=== PATIENT | female | born 1990 | race Two or more races ===

== ENCOUNTER 2024-06-29 20:20 | Emergency (ER) | payer SELFPAY ==
[~2024-06-29] VITALS: Ht 154.9 cm; Wt 60.0 kg
[2024-06-29 20:37] VITALS: PULSE 86; RESP 18; TEMP 98.4; O2SAT 98
--- NOTE | 2024-06-29 20:40 | ED.PDOC ---
PROFESSOR OF SURGERY HPI Comments 33-year-old female who came to ER for vaginal bleeding. Patient is a approximately 19 weeks . States few minutes ago, she started having vaginal bleeding, she denies any abdominal cramping pain. Denies any nausea or vomiting. Chief Complaint: Vaginal Bleed Time Seen by MD: 20:40 Reviewed Notes: Nurses Notes Information Source: Patient Mode of Arrival: Ambulatory Timing: Minutes Severity: Moderate Vaginal Discharge: None Vaginal Lesions: None Bleeding Quality: Bright Red Vaginal Mass: None Onset Of Mass/Bleeding: Spontaneous Sexual Activity: Last Consensual [place]: Unknown History of: Current Associated Signs and Symptoms: Vaginal Bleeding Past Medical History PAST MEDICAL HISTORY: Denies Surgical History: Denies all surgeries TESTS SUPERINTENDENT History: Denies all TESTS SUPERINTENDENT Hx 3 Para 2 Family History Family History: Reviewed,noncontributory to illness Social History Smoker: Non-Smoker Alcohol: Denies ETOH Use Drugs: Denies Drug Use Lives In: Home Constitutional: denies: chills, diaphoresis, fatigue, fever, malaise, sweats, weakness, others EENTM: denies: blurred vision, double vision, ear bleeding, ear discharge, ear drainage, ear pain, ear ringing, eye pain, eye redness, hearing loss, mouth pain, mouth swelling, nasal discharge, nose bleeding, nose congestion, nose pain, photophobia, tearing, throat pain, throat swelling, voice changes, others Respiratory: denies: cough, hemoptysis, orthopnea, SOB at rest, shortness of breath, SOB with excertion, stridor, wheezing, others Cardiovascular: denies: chest pain, dizzy spells, diaphoresis, Dyspnea on exertion, edema, irregular heart beat, left arm pain, lightheadedness, palpitations, PND, syncope, others Gastrointestinal: denies: abdomen distended, abdominal pain, blood streaked bowels, constipated, diarrhea, dysphagia, difficulty swallowing, hematemesis, melena, nausea, poor appetite, poor fluid intake, rectal bleeding, rectal pain, vomiting, others Genitourinary: reports: abnormal vagina bleeding; denies: burning, dyspareunia, dysuria, flank pain, frequency, hematuria, incontinence, pain, , vagina discharge, urgency, others Neurological: denies: dizziness, fainting, headache, left sided numbness, left sided weakness, numbness, paresthesia, pre-existing deficit, right sided numbness, right sided weakness, seizure, speech problems, tingling, tremors, weakness, others Musculoskeletal: denies: back pain, gout, joint pain, joint swelling, muscle pain, muscle stiffness, neck pain, others Integumetry: denies: bruises, change in color, change in hair/nails, dryness, laceration, lesions, lumps, rash, wounds, others Allergic/Immunocompromised: denies: Difficulty Healing, Frequent Infections, Hives, Itching, others Hematologic/Lymphatic: denies: anemia, blood clots, easy bleeding, easy bruising, swollen glands, others Endocrine: denies: excessive hunger, excessive sweating, excessive thirst, excessive urination, flushing, intolerance to cold, intolerance to heat, unexplained weight gain, unexplained weight loss, others Psychiatric: denies: anxiety, bipolar disorder, depression, hopeless, panic disorder, schizophrenia, sleepless, suicidal, others Physical Exam General Appearance: No Apparent Distress, Normal HEENT: Normal ENT Inspection, Pharynx Normal, TMs Normal Neck: Full Range of Motion, Non-Tender, Normal, Normal Inspection Respiratory: Chest Non-Tender, Lungs Clear, No Accessory Muscle Use, No Respiratory Distress, Normal Breath Sounds Cardiovascular: No Edema, No JVD, No Murmur, No Gallop, Normal Peripheral Pulses, Regular Rate/Rhythm Breast Exam: Deferred Gastrointestinal: No Organomegaly, Non Tender, No Pulsatile Mass, Normal Bowel Sounds, Soft Genitalia: Deferred Pelvic: Deferred Rectal: Deferred Extremities: No calf tenderness, Normal capillary refill, Normal inspection, Normal range of motion, Non-tender, No pedal edema Musculoskeletal : Apperance: Normal Neurologic: Alert, lpn medical assistant II-XII nml as Tested, No Motor Deficits, Normal Affect, Normal Mood, No Sensory Deficits Cerebellar Function: Normal Reflexes: Normal Skin: Dry, Normal Color, Warm Lymphatic: No Adenopathy Was a procedure done? Was a procedure done?: No Differential Diagnosis (TESTS SUPERINTENDENT) Vaginal Bleeding: - Missed, - Threatened, Blood Loss Anemia, Ectopic , Menorrhagia, Menometrorrhagia, Placenta Previa, UTI X-Ray, Labs, Meds, VS Vital Signs Date Time Temp Pulse Resp B/P (MAP) Pulse Ox O2 Delivery O2 Flow Rate FiO2 06/29/24 20:35 98.0 75 18 115/72 (86) 97 Lab Test 06/29/24 23:04 06/29/24 21:12 Range/Units Urine Color Straw Yellow Urine Clarity Clear Clear Urine pH 6.5 5.0-9.0 Urine Specific [place] 1.004 1.001-1.035 Urine Protein Negative Negative Urine Ketones Negative Negative Urine Blood Trace H Negative /uL Urine Nitrite Negative Negative Urine Bilirubin Negative Negative Urine Urobilinogen Normal Negative mg/dL Urine Leukocyte Esterase Negative Negative /uL Urine RBC None seen 0 - 4 /hpf Urine WBC None seen 0 - 5 /hpf Urine Squamous Epithelial Cells None seen <5 /hpf Urine Bacteria None seen None Seen /hpf Urine Glucose Normal Normal mg/dL White Blood Count 6.7 4.4-10.8 10^3/uL Red Blood Count 3.56 L 4.0-5.20 10^6/uL Hemoglobin 10.8 L 12.2-16.2 g/dL Hematocrit 31.3 L 36.0-46.0 % Mean Corpuscular Volume 88.1 80.0-100.0 fL Mean Corpuscular Hemoglobin 30.4 28.0-32.0 pg Mean Corpuscular Hemoglobin Concent 34.5 32.0-36.0 g/dL Red Cell Distribution Width 14.8 H 11.8-14.3 % Platelet Count 246 140-450 10^3/uL Mean Platelet Volume 8.3 6.9-10.8 fL Neutrophils (%) (Auto) 64.6 37.0-80.0 % Lymphocytes (%) (Auto) 26.5 10.0-50.0 % Monocytes (%) (Auto) 7.4 0.0-12.0 % Eosinophils (%) (Auto) 1.0 0.0-7.0 % Basophils (%) (Auto) 0.5 0.0-2.0 % Neutrophils # (Auto) 4.4 1.6-8.6 10 ^3/uL Lymphocytes # (Auto) 1.8 0.4-5.4 10 ^3/uL Monocytes # (Auto) 0.5 0-1.3 10 ^3/uL Eosinophils # (Auto) 0.1 0-0.8 10 ^3/uL Basophils # (Auto) 0 0-0.2 10 ^3/uL Nucleated Red Blood Cells 0.0 % Sodium Level 137 136-145 mmol/L Potassium Level 3.3 L 3.5-5.1 mmol/L Chloride Level 108 H 98-107 mmol/L Carbon Dioxide Level 23 20-31 mmol/L Anion Gap 6 5-15 Blood Urea Nitrogen 8 L 9-23 mg/dL Creatinine 0.64 0.550-1.02 mg/dL Glomerular Filtration Rate Calc 120 >90 mL/min BUN/Creatinine Ratio 12.5 10.0-20.0 Serum Glucose 112 H 74-106 mg/dL Calcium Level 9.1 8.7-10.4 mg/dL Beta HCG, Quantitative 31913.2 H 1.5-4.2 mIU/mL Time of 1ST Reevaluation: 20:36 Reevaluation 1ST: Unchanged Patient Education/Counseling: Diagnosis, Treatment Family Education/Counseling: No Family Present Departure 1 Departure Time of Disposition: 23:56 (Patient has a threatened miscarriage. We will discharge patient home with outpatient OB follow up) Impression: Primary Impression: Threatened miscarriage Additional Impression: Vaginal bleeding during Disposition: 01 HOME / SELF CARE / HOMELESS Condition: Stable Additional Instructions: Your ultrasound appears normal. It is important to follow up with your OBGYN within the next 3 days. If your symptoms worsen or you have any other concerns please return [facility]. Discharged With: Self Critical Care Note Critical Care Time?: No Stability Stability form required: No Heart Score Heart Score: Heart Score Response (Comments) Value History N/A 0 EKG N/A 0 Age N/A 0 Risk Factors N/A 0 Troponin N/A 0 Total 0 I personally scribed for SLY HOBBS MD ([email or web address]) on 06/29/24 at 20:40. Electronically submitted by Jamal Weston ([email or web address]). SLY HOBBS MD Jun 29, 2024 20:40
[2024-06-29 21:36] LABS: Basophils # (auto) 0 10 ^3/uL (0-0.2); Basophils % (auto) 0.5 % (0.0-2.0); Eosinophils # (auto) 0.1 10 ^3/uL (0-0.8); Hematocrit 31.3 % (36.0-46.0); Hemoglobin 10.8 g/dL (12.2-16.2); Lymphocytes # (auto) 1.8 10 ^3/uL (0.4-5.4); Lymphocytes % (auto) 26.5 % (10.0-50.0); Mean Corpuscular Hemoglobin 30.4 pg (28.0-32.0); Mean Corpuscular Hgb Conc. 34.5 g/dL (32.0-36.0); Mean Corpuscular Volume 88.1 fL (80.0-100.0); Monocytes # (auto) 0.5 10 ^3/uL (0-1.3); Monocytes % (auto) 7.4 % (0.0-12.0); Neutrophils # (auto) 4.4 10 ^3/uL (1.6-8.6); Neutrophils % (auto) 64.6 % (37.0-80.0); Platelet Count (auto) 246 10^3/uL (140-450); Red Blood Cells 3.56 10^6/uL (4.0-5.20); Red Cell Distribution Width 14.8 % (11.8-14.3); White Blood Cell 6.7 10^3/uL (4.4-10.8)
--- NOTE | 2024-06-29 21:39 | DVH ---
OB ULTRASOUND, LIMITED CLINICAL INDICATION: abdominal pain and vaginal bleeding TECHNIQUE: Multiple grayscale ultrasound and M-mode images were obtained of the pelvis for evaluation of intrauterine . COMPARISON: None FINDINGS: A single living fetus is seen in transverse right lateral presentation. Biparietal diameter: 4.27 cm (18 weeks, 6 days) Head Circumference: 15.86 cm (18 weeks, 5 days) Abdomen Circumference: 14.04 cm (19 weeks, 3 days) Femur Length: 3.03 cm (19 weeks, 3 days) Estimated weight: 285 grams (+/- 43 grams). Placenta: Posterior placenta. Complete Placenta previa. Amniotic fluid: Visibly normal. Cervix is 4.1 cm and closed. heart rate: 141 beats/min. A complete anatomic survey was not performed on this exam. IMPRESSION: 1. Single intrauterine with an estimated gestational age of 19 weeks, 1 days, correspondi ng to an estimated date of delivery of 11/22/2024. 2. Complete placenta previa is seen at this time. Continued attention on follow-up imaging allan noonan
[2024-06-29 21:46] LABS: Sodium 137 mmol/L (136-145)
[2024-06-29 21:47] LABS: Anion Gap 6 (5-15); Carbon Dioxide 23 mmol/L (20-31)
[2024-06-29 21:48] LABS: Calcium 9.1 mg/dL (8.7-10.4)
[2024-06-29 21:52] LABS: BUN/Creatinine Ratio 12.5 (10.0-20.0)
[2024-06-29 22:00] LABS: Blood Urea Nitrogen 8 mg/dL (9-23); Chloride 108 mmol/L (98-107); Glucose 112 mg/dL (74-106); Potassium 3.3 mmol/L (3.5-5.1)
[2024-06-29 23:05] LABS: Urine Bacteria None Seen /hpf (None Seen); Urine WBC None Seen /hpf (0 - 5)
[2024-06-29 23:16] LABS: Urine Blood TRACE /uL (Negative); Urine Clarity Clear (Clear); Urine Protein, UAD Negative (Negative); Urine Specific Gravity 1.004 (1.001-1.035); Urine Squamous Epithelial Cell None Seen /hpf (<5); Urine Urobilinogen Normal (Negative); Urine pH 6.5 (5.0-9.0)
[2024-06-29 23:19] LABS: Urine Color STRAW (Yellow)
[2024-06-30 00:12] VITALS: BP 129/77; PULSE 80; RESP 17; O2SAT 98
== END 2024-06-30 00:18 | disposition home or self-care (01) ==
LOC: ER 20:20
DX: O20.0 Threatened abortion (principal); Z3A.19 19 weeks gestation of pregnancy
CPT/HCPCS: 36415; 76805; 76817; 80048; 81001; 84702; 85025; 86900; 86901

== ENCOUNTER 2024-09-14 19:32 | Observation (INO) | payer MEDICAID ==
[~2024-09-14] VITALS: Ht 154.9 cm; Wt 61.7 kg
[2024-09-14] MEDS ORDERED: NIFE10CA52 PO (20:26)
[2024-09-14] MEDS ORDERED: PROG200C21 (20:28)
[2024-09-14] MEDS: BETAMETHASONE ACET (30mg/5ml) 5ml Vial 6mg/ml IM SCH (20:45)
== END 2024-09-14 21:04 | disposition home or self-care (01) ==
LOC: LDRP 19:32
PROVIDERS: ADMIT Obstetrics & Gynecology; ATTEND Obstetrics & Gynecology
DX: O26.873 Cervical shortening, third trimester (principal); Z3A.30 30 weeks gestation of pregnancy; Z79.899 Other long term (current) drug therapy; Z98.890 Other specified postprocedural states
CPT/HCPCS: 81002; 94760; 96372; G0378; J0702

== ENCOUNTER 2024-09-15 08:33 | Observation (INO) | payer MEDICAID ==
[2024-09-15] MEDS: BETAMETHASONE ACET (30mg/5ml) 5ml Vial 6mg/ml IM ONE (09:14)
--- NOTE | 2024-09-16 06:38 | DVHDS2 ---
Physician Discharge Progress N Final Diagnosis: ptl [place] Operations or Procedures: Operations or Procedures nst,[place] Condition on Discharge: Good Disposition: Home Discharge Instructions: Diet: Regular Activity: No Restrictions, As Tolerated Medications: na Follow Up Care: Specialist: 2d Discharge Statement: "Patient was advised to return to the ER or call 911 if any headaches, dizziness, shortness of breath, chest pain, abdominal pain, bleeding, fevers, or worsening of medical condition. Patient was counseled about treatment plan, medications, possible side effects, patientverbalized understanding. All questions were answered to the best of my ability. This discharge took greater then 30 minutes in planning, reviewing documentation, counseling the patient, and discussing with other team members." Visit Coding OBGYN Date of Service: Sep 15, 2024 Billing Provider: UMBERTO KASPER DO FASHION PATTERNMAKER Common Visit Codes: 67389-ZHZASSQ INP/OBS CARE (HIGH) FASHION PATTERNMAKER Procedure Codes: 91024-12- NON-STRESS TEST UMBERTO KASPER DO Sep 16, 2024 06:38
== END 2024-09-15 09:34 | disposition home or self-care (01) ==
LOC: UNDOADMOB 08:33 → LDRP 08:33 → UNDODISOB 09:34
PROVIDERS: ADMIT Obstetrics & Gynecology; ATTEND Obstetrics & Gynecology
DX: O60.03 Preterm labor without delivery, third trimester (principal); O26.873 Cervical shortening, third trimester; Z3A.30 30 weeks gestation of pregnancy; Z79.899 Other long term (current) drug therapy; Z98.890 Other specified postprocedural states
CPT/HCPCS: 81002; 94760; 96372; G0378; J0702

== ENCOUNTER 2024-09-22 07:14 | Observation (INO) | payer MEDICAID ==
[2024-09-22] MEDS ORDERED: PREN-129 OR (09:58)
[2024-09-22] MEDS ORDERED: PROG100S VA (09:58)
--- NOTE | 2024-09-22 10:06 | DVH ---
[facility]24 AM Indication: Short cervix Comparison: None Technique: Sonogram of gravid uterus utilizing grayscale and color techniques utilizing transabdomina l and transvaginal probes. FINDINGS: Single intrauterine gestation with heart activity 135 beats per minute. Posterior placenta with no ev idence of previa. The fetus is in cephalic presentation. TONJA is 10.6 cm with DVP of 4.8 cm. Mild v-shaped cervical funneling with the length of fundal measuring 0.5 cm. The residual cervical l ength is 2.6 cm in the transvaginal scan. IMPRESSION: 1. Shortened cervix measuring 2.6 cm in length mild v-shaped funneling of the internal os. 2. Single living intrauterine .
--- NOTE | 2024-09-22 12:48 | DVHDS2 ---
Physician Discharge Progress N Final Diagnosis: ptl 31 wks Operations or Procedures: Operations or Procedures nst,sono Condition on Discharge: Good Disposition: Home Discharge Instructions: Diet: Regular Activity: Light activity Medications: na Follow Up Care: Specialist: 1w Discharge Statement: "Patient was advised to return to the ER or call 911 if any headaches, dizzines s, shortness of breath, chest pain, abdominal pain, bleeding, fevers, or worsening of medical condition. Patient was counseled about treatment plan, medications, possible side effects, patientverbalized understanding. All questions were answered to the best of my ability. This discharge took greater then 30 minutes in planning, reviewing documentation, counseling the patient, and discussing with other team members." Visit Coding OBGYN Date of Service: Sep 22, 2024 Billing Provider: UMBERTO KASPER DO EQUIPMENT OPERATOR/LABORER Common Visit Codes: 01383-[id number] OBS CARE (HIGH) EQUIPMENT OPERATOR/LABORER Procedure Codes: 81963-97- NON-STRESS TEST UMBERTO KASPER DO Sep 22, 2024 12:48
== END 2024-09-22 10:19 | disposition home or self-care (01) ==
LOC: LDRP 09:03
PROVIDERS: ADMIT Obstetrics & Gynecology; ATTEND Obstetrics & Gynecology
DX: O60.03 Preterm labor without delivery, third trimester (principal); Z3A.31 31 weeks gestation of pregnancy; Z79.899 Other long term (current) drug therapy; Z98.890 Other specified postprocedural states
CPT/HCPCS: 59025; 76815; 81002; 94760; G0378

== ENCOUNTER 2024-09-29 06:28 | Observation (INO) | payer MEDICAID ==
[~2024-09-29 06:28] MED LIST: PREN-129 OR; PROG100S VA
--- NOTE | 2024-09-29 09:11 | DVH ---
CLINICAL HISTORY: labor. Short cervix. COMPARISON: Prior ultrasound dated 09/22/2024. TECHNIQUE: biophysical profile was performed. Transabdominal sonographic images of the fetus we re obtained. FINDINGS: The fetus is in cephalic position. heart rate measures 137 BPM. Amniotic fluid index measures 10.1 cm. The placenta is posterior in position. No visualized evidence of placenta previa or abruption. The tip of the placenta is approximately 2.8 cm from the cervical os. Cervix measures 3.2 cm in length. BPP profile is an overall score of 8/8, with 2/2 points for breathing, with at least one episode of breathing over a 30 second duration during a 30 minute observation, 2/2 points for m ovements, with 3 or more discrete body or limb movements, 2/2 points for tone, with one or more episodes of extremity extension with return to flexion, or opening and closing of hand, and 2/ 2 points for amniotic fluid, with at least 1 pocket of amniotic fluid that measures 2 cm in 2 perpend icular planes. IMPRESSION: 1. BPP score of 8/8. 2. Cervix measures 3.2 cm in length.
--- NOTE | 2024-09-30 08:02 | DVHDS2 ---
Physician Discharge Progress N Final Diagnosis: ptl 32 wks Operations or Procedures: Operations or Procedures nst,sono Condition on Discharge: Good Disposition: Home Discharge Instructions: Diet: Regular Activity: Light activity Medications: na Follow Up Care: Specialist: 1w Discharge Statement: "Patient was advised to return to the ER or call 911 if any headaches, dizzines s, shortness of breath, chest pain, abdominal pain, bleeding, fevers, or worsening of medical condition. Patient was counseled about treatment plan, medications, possible side effects, patientverbalized understanding. All questions were answered to the best of my ability. This discharge took greater then 30 minutes in planning, reviewing documentation, counseling the patient, and discussing with other team members." Visit Coding OBGYN Date of Service: Sep 29, 2024 Billing Provider: UMBERTO KASPER DO BRAKE LINING MAKER Common Visit Codes: 81467-[id number] INP/OBS CARE (HIGH) BRAKE LINING MAKER Procedure Codes: 06717-23- NON-STRESS TEST UMBERTO KASPER DO Sep 30, 2024 08:02
== END 2024-09-29 09:24 | disposition home or self-care (01) ==
LOC: LDRP 08:01 → UNDOADMOB 08:01 → LDRP 08:08
PROVIDERS: ADMIT Obstetrics & Gynecology; ATTEND Obstetrics & Gynecology
DX: O60.03 Preterm labor without delivery, third trimester (principal); Z3A.32 32 weeks gestation of pregnancy; Z79.899 Other long term (current) drug therapy
CPT/HCPCS: 59025; 76819; 81002; 94760; G0378

== ENCOUNTER 2024-10-06 08:15 | Observation (INO) | payer MEDICAID ==
--- NOTE | 2024-10-06 09:21 | DVH ---
Procedure: US BIOPHYSICAL PROFILE 10/06/2024 08:50 AM Indication: PTL, Short Cervix Comparison: US BIOPHYSICAL PROFILE on DOS: 09/29/24 Technique: Sonogram of gravid uterus utilizing grayscale and color techniques. FINDINGS: Single living intrauterine gestation. Presentation: Cephalic Placenta: Posterior, low lying with its distal end 2.4 cm from the internal os heart rate: 126 bpm TONJA: 11.3 cm, DVP: 6.6 cm Maternal cervix: Closed, measuring 3.5 cm in length in the transvaginal scan Biophysical Profile: breathing score: 2 movement score: 2 tone: 2 Quantitative TONJA score: 2 Total score: 8/8 IMPRESSION: 1. Single living as above. 2. Biophysical profile score: 8/8. 3. Low-lying placenta.
--- NOTE | 2024-10-06 18:09 | DVHDS2 ---
Physician Discharge Progress N Final Diagnosis: Threatened labor Secondary Diagnosis: Encounter for surveillance Operations or Procedures: Operations or Procedures NST/BPP/TONJA Limited OB US Commentary: Commentary PATIENT: VANDANA SESAY ACCT: [id number] UNIT: [id number] : 1990 LOC: LD ROOM / BED: TRIAGE3 / A AGE / SEX: 33 / F ADM STATUS: ADM IN SERVICE 08 ORDERING PHYSICIAN: CHAYO NGO DO PROCEDURE(s): BPP - BIOPHYSICAL PROFILE REASON: PTL, Short Cervix ORDER NUMBER(s): [id number], ACCESSION NUMBER(s): [id number] Procedure: US BIOPHYSICAL PROFILE 10/06/2024 08:50 AM Indication: PTL, Short Cervix Comparison: US BIOPHYSICAL PROFILE on DOS: 09/29/24 Technique: Sonogram of gravid uterus utilizing grayscale and color techniques. FINDINGS: Single living intrauterine gestation. Presentation: Cephalic Placenta: Posterior, low lying with its distal end 2.4 cm from the internal os heart rate: 126 bpm TONJA: 11.3 cm, DVP: 6.6 cm Maternal cervix: Closed, measuring 3.5 cm in length in the transvaginal scan Biophysical Profile: breathing score: 2 movement score: 2 tone: 2 Quantitative TONJA score: 2 Total score: 8/8 IMPRESSION: 1. Single living as above. 2. Biophysical profile score: 8/8. 3. Low-lying placenta. Condition on Discharge: Stable Disposition: Home Discharge Instructions: Diet: Regular Activity: Light activity Activity comment: Pelvic rest Follow Up/Referral: As scheduled Medications: N/A Follow Up Care: Discharge Statement: "Patient was advised to return to the ER or call 911 if any headaches, dizziness, shortness of breath, chest pain, abdominal pain, bleeding, fevers, or worsening of medical condition. Patient was counseled about treatment plan, medications, possible side effects, patientverbalized understanding. All questions were answered to the best of my ability. This discharge took greater then 30 minutes in planning, reviewing documentation, counseling the patient, and discussing with other team members." Visit Coding OBGYN Date of Service: Oct 06, 2024 Billing Provider: CHAYO NGO DO PICK REMOVER Common Visit Codes: 86419-QVA/OBS SAME DATE (HIGH) CHAYO NGO DO Oct 06, 2024 18:09
== END 2024-10-06 09:42 | disposition home or self-care (01) ==
LOC: LDRP 08:15 → UNDOADMOB 08:15 → LDRP 08:27 → UNDODISOB 09:42
PROVIDERS: ADMIT Obstetrics & Gynecology; ATTEND Obstetrics & Gynecology
DX: O47.03 False labor before 37 completed weeks of gestation, third trimester (principal); O26.873 Cervical shortening, third trimester; Z98.890 Other specified postprocedural states; Z79.899 Other long term (current) drug therapy; Z3A.33 33 weeks gestation of pregnancy
CPT/HCPCS: 59025; 76819; 81002; 94760; G0378

== ENCOUNTER 2024-10-13 06:02 | Observation (INO) | payer MEDICAID ==
--- NOTE | 2024-10-16 17:04 | DVH ---
BIOPHYSICAL PROFILE HISTORY: ptl/ short cx Comparison: 10/06/2024 TECHNIQUE: Multiple transabdominal real-time grayscale sonographic images through the gravid uterus of the fetus with duplex Doppler color flow and M-mode spectral analysis FINDINGS: BIOPHYSICAL PROFILE: breathing score: 2/2 movement score: 2/2 tone score: 2/2 Quantitative TONJA score: 2/2 (TONJA: 11.7 cm Cm.) Total score: 8/8 The cervix 3.1 cm Single live fetus in cephalic presentation. heart rate 145 beats per minute. Low-lying posterior placenta 2.9 cm from the internal cervical os IMPRESSION: 1. Biophysical profile score: 8/8 2. Low-lying posterior wall placenta. Normal cervical length 3. No significant change from previous exam
--- NOTE | 2024-10-18 14:48 | DVHDS2 ---
Physician Discharge Progress N Final Diagnosis: ptl Operations or Procedures: Operations or Procedures nst reactive reviwed Condition on Discharge: Good Disposition: Home Discharge Instructions: Diet: Regular Activity: Light activity Medications: na Follow Up Care: Specialist: sindik Discharge Statement: "Patient was advised to return to the ER or call 911 if any headaches, di zziness, shortness of breath, chest pain, abdominal pain, bleeding, fevers, or worsening of medical condition. Patient was counseled about treatment plan, medications, possible side effects, patient�verbalized understanding. All questions were answered to the best of my ability. This discharge took greater then 30 minutes in planning, reviewing documentation, counseling the patient, and discussing with other team members." Visit Coding OBGYN Date of Service: October 16, 2024 Billing Provider: UMBERTO KASPER DO INSTRUCTOR BRIDGE Common Visit Codes: 33159-SUPMOMG OBS CARE (HIGH) INSTRUCTOR BRIDGE Procedure Codes: 54315-61- NON-STRESS TEST UMBERTO KASPER DO October 18, 2024 14:48
== END 2024-10-16 17:10 | disposition home or self-care (01) ==
LOC: LDRP 10-16 03:35 → UNDOADMOB 10-16 03:35 → LDRP 10-16 15:51
PROVIDERS: ADMIT Obstetrics & Gynecology; ATTEND Obstetrics & Gynecology
DX: O60.03 Preterm labor without delivery, third trimester (principal); Z3A.35 35 weeks gestation of pregnancy; Z79.899 Other long term (current) drug therapy; Z98.890 Other specified postprocedural states
CPT/HCPCS: 59025; 76819; 81002; 82948; G0378

== ENCOUNTER 2024-10-23 10:32 | Observation (INO) | payer MEDICAID ==
--- NOTE | 2024-10-24 06:08 | DVHDS2 ---
Discharge Summary Date of Admission October 23, 2024 at 15:15 Date of Discharge: October 23, 2024 Admitting Diagnosis Patient here for monitoring with history of labor and short cervix previous sections Brief Hx & Hospital Course: Patient here for monitoring with history of labor and short cervix previous sections Condition at Discharge: Good Final Diagnosis/Problems List Patient here for monitoring with history of labor and short cervix previous sections Discharge Disposition: Home SNF Discharge Reason For Transfer: Kick counts labor precautions Discharge Instruct/Medications Diet: Regular Activity: No Restrictions, As Tolerated Discharge Statement: "Patient was advised to return to the ER or call 911 if any headaches, dizziness, shortness of breath, chest pain, abdominal pain, bleeding, fevers, or worsening of medical condition. Patient was counseled about treatment plan, medications, possible side effects, patient�verbalized understanding. All questions were answered to the best of my ability. This discharge took greater then 30 minutes in planning, reviewing documentation, counseling the patient, and discussing with other team members." ASSESSMENT ASSESSMENT Assessment Visit Coding OBGYN Date of Service: October 24, 2024 Billing Provider: DANIELLE CODY DO PBX TECHNICIAN Common Visit Codes: 81043-KZR/OBS SAME DATE (LOW), 59613-DRQ/OBS SAME DATE (MOD), 27198-ESA/OBS SAME DATE (HIGH) PBX TECHNICIAN Procedure Codes: 89875-24- NON-STRESS TEST DANIELLE CODY DO October 24, 2024 06:08
== END 2024-10-23 16:37 | disposition home or self-care (01) ==
LOC: LDRP 15:15 → UNDOADMOB 15:15 → LDRP 15:29 → UNDODISOB 16:37
PROVIDERS: ADMIT Obstetrics & Gynecology; ATTEND Obstetrics & Gynecology
DX: O60.03 Preterm labor without delivery, third trimester (principal); O26.873 Cervical shortening, third trimester; Z3A.36 36 weeks gestation of pregnancy; Z98.891 History of uterine scar from previous surgery; Z79.899 Other long term (current) drug therapy
CPT/HCPCS: 59025; 81002; 94760; G0378

== ENCOUNTER 2024-10-30 15:00 | Observation (INO) | payer MEDICAID ==
[2024-10-30] MEDS ORDERED: NIFE10CA52 PO (15:41)
--- NOTE | 2024-10-30 17:10 | DVHDS2 ---
Physician Discharge Progress N Final Diagnosis: Encounter for antepartum surveillance Secondary Diagnosis: History of labor Operations or Procedures: Operations or Procedures NST- Reactive (reviewed) Condition on Discharge: Stable Disposition: Home Discharge Instructions: Diet: Regular Activity: No Restrictions, As Tolerated Follow Up/Referral: PRN Medications: N/A Follow Up Care: Discharge Statement: "Patient was advised to return to the ER or call 911 if any headaches, dizziness, shortness of breath, chest pain, abdominal pain, bleeding, fevers, or worsening of medical condition. Patient was counseled about treatment plan, medications, possible side effects, patientverbalized understanding. All questions were answered to the best of my ability. This discharge took greater then 30 minutes in planning, reviewing documentation, counseling the patient, and discussing with other team members." Visit Coding OBGYN Date of Service: October 30, 2024 Billing Provider: CHAYO NGO DO HISTOLOGY ASSISTANT Common Visit Codes: 53385-CFG/OBS SAME DATE (HIGH) HISTOLOGY ASSISTANT Procedure Codes: 67309-14- NON-STRESS TEST CHAYO NGO DO October 30, 2024 17:10
== END 2024-10-30 16:04 | disposition home or self-care (01) ==
LOC: LDRP 15:00
PROVIDERS: ADMIT Obstetrics & Gynecology; ATTEND Obstetrics & Gynecology
DX: O09.213 Supervision of pregnancy with history of pre-term labor, third trimester (principal); Z98.890 Other specified postprocedural states; Z79.899 Other long term (current) drug therapy; Z3A.37 37 weeks gestation of pregnancy
CPT/HCPCS: 59025; 81002; 94760; G0378

== ENCOUNTER 2024-11-10 06:38 | Inpatient (IN) | payer MEDICAID ==
[~2024-11-10] VITALS: Ht 154.9 cm; Wt 63.5 kg
[~2024-11-10 06:38] MED LIST changes: +NIFE10CA52 PO
--- NOTE | 2024-11-10 08:54 | DVHHP ---
ADMIT DATE: 11/10/2024 CHIEF COMPLAINT: Desires repeat section with bilateral tubal ligation. HISTORY OF PRESENT ILLNESS: The patient is a 34-year-old 3, para 2 with EDC 11/20, estimated gestational age of 39 weeks, admitted for repeat section with bilateral tubal ligation. The patient has had history of labor, being on Procardia. Risks, complications, and failure rate with section and tubal ligation were discussed with the patient. The patient fully understands and wishes to proceed with planned procedure. PAST MEDICAL HISTORY: None. PAST SURGICAL HISTORY: x 1. SOCIAL HISTORY: None. FAMILY HISTORY: None. WOOL FLEECE GRADER HISTORY: One section, one vaginal delivery. ALLERGIES: No known drug allergies. REVIEW OF SYSTEMS: Consistent with HPI. PHYSICAL EXAMINATION: VITAL SIGNS: Stable, afebrile. HEENT: Within normal limits. CARDIOVASCULAR: Regular rate and rhythm. LUNGS: Clear to auscultation. BREASTS: Symmetrical. No masses. ABDOMEN: Gravid. Positive heart. PELVIC: 1 cm, 60%, -2. EXTREMITIES: No clubbing, cyanosis, or edema. IMPRESSION: * Term . Desires repeat section. * Desires bilateral tubal ligation. * Previous section x 1. * History of labor. PLAN: Repeat section with bilateral tubal ligation. Informed consent obtained. Risks and complications of surgery include infection, bleeding, hematoma formation, injury to bowel, bladder, surrounding organs, possibility of DVT, pulmonary embolism, and risks of anesthesia discussed with the patient. Failure rate with tubal sterilization discussed with the patient. Use of Filshie clip discussed with the patient. The patient fully understands. She wishes to proceed with planned procedure. DO JONY Carr/KAROL TID: [id number] RECEIPT: [id number]
[2024-11-10 11:27] LABS: Basophils # (auto) 0 10 ^3/uL (0-0.2); Basophils % (auto) 0.3 % (0.0-2.0); Eosinophils # (auto) 0 10 ^3/uL (0-0.8); Eosinophils % (auto) 0.4 % (0.0-7.0); Hematocrit 34.6 % (36.0-46.0); Hemoglobin 11.6 g/dL (12.2-16.2); Lymphocytes # (auto) 1.5 10 ^3/uL (0.4-5.4); Lymphocytes % (auto) 22.2 % (10.0-50.0); Mean Corpuscular Hemoglobin 27.2 pg (28.0-32.0); Mean Corpuscular Hgb Conc. 33.6 g/dL (32.0-36.0); Mean Corpuscular Volume 80.8 fL (80.0-100.0); Monocytes # (auto) 0.3 10 ^3/uL (0-1.3); Monocytes % (auto) 4.1 % (0.0-12.0); Neutrophils # (auto) 4.9 10 ^3/uL (1.6-8.6); Nucleated Red Blood Cells % 0.1 %; Platelet Count (auto) 220 10^3/uL (140-450); Red Blood Cells 4.27 10^6/uL (4.0-5.20); White Blood Cell 6.7 10^3/uL (4.4-10.8)
[2024-11-10 11:41] LABS: Albumin 4.1 g/dL (3.2-4.8); Anion Gap 11 (5-15); Aspartate Aminotransferase 14 U/L (13-40); BUN/Creatinine Ratio 13.1 (10.0-20.0); Calcium 8.8 mg/dL (8.7-10.4); Carbon Dioxide 21 mmol/L (20-31); Chloride 103 mmol/L (98-107); Potassium 3.6 mmol/L (3.5-5.1)
[2024-11-10 11:42] LABS: Bilirubin, Total 0.5 mg/dL (0.2-1.0)
[2024-11-10 11:43] LABS: INR 0.92 (0.9-1.15); Partial Thromboplastin Time 26.5 SEC (24.5-34.5); Prothrombin Time 9.8 sec (9.3-11.8)
[2024-11-10 11:51] LABS: Alanine Aminotransferase 9 U/L (7-40); Alkaline Phosphatase 179 U/L (46-116); Blood Urea Nitrogen 8 mg/dL (9-23); Glucose 111 mg/dL (74-106); Sodium 135 mmol/L (136-145)
[2024-11-10 11:59] LABS: Urine Bacteria FEW /hpf (None Seen); Urine Blood Negative /uL (Negative); Urine Clarity Turbid (Clear); Urine Color Yellow (Yellow); Urine Mucus FEW (None Seen); Urine Protein, UAD TRACE (Negative); Urine Specific Gravity 1.018 (1.001-1.035); Urine Squamous Epithelial Cell MOD /hpf (<5); Urine Urobilinogen Normal (Negative); Urine WBC 13 /HPF (0-5); Urine pH 6.5 (5.0-9.0)
[2024-11-10 12:15] LABS: Amphetamine Screen, Urine Neg (NEGATIVE); Barbiturate Scree,Urine Neg (NEGATIVE); Benzodiazephine Screen, Urine Neg (NEGATIVE); Cannabinoid Screen, Urine Neg (NEGATIVE); Cocaine Screen, Urine Neg (NEGATIVE); Opiate Scree,Urine Neg (NEGATIVE); Phencyclidine Screen, Urine Neg (NEGATIVE)
[2024-11-11] VITALS (13 sets, daily range): BP systolic 102–127; BP diastolic 61–87; PULSE 61–78; RESP 16–18; TEMP 97.3–98.4; O2SAT 96–100
[2024-11-11] MEDS: ceFAZolin 2 GM/D5W50ml 50 ML IV ONE (06:31)
[2024-11-11] MEDS: LACTATED RINGER'S 1,000 ML IV ONE (06:34)
[2024-11-11] MEDS: LACTATED RINGER'S 1,000 ML IV SCH (06:34)
[2024-11-11] MEDS ORDERED: ceFAZolin 1GM/50ML 50 ML IV SCH (07:15)
[2024-11-11] MEDS: LACT. RINGERS/OXYTOCIN 20UNITS 1,000 ML IV ONE (07:15)
[2024-11-11] MEDS: GUM (CHEWING) 1 GUM CHEW CHEW ONE (07:15)
[2024-11-11] MEDS ORDERED: ONDANSETRON HCL 4 MG/2 ML VIAL IV PRN ×2 (07:15→09:45)
[2024-11-11] MEDS ORDERED: HYDR-4072 PO (07:18)
[2024-11-11] MEDS ORDERED: DOCU-94 PO (07:18)
[2024-11-11] MEDS ORDERED: IBUP-1456 PO (07:18)
[2024-11-11] MEDS: SODIUM CITR/CITRIC ACID ORAL SOLN 30 ML PO ONE (07:19)
[2024-11-11] MEDS: SUCCINYLCHOLINE CHLORIDE 20 MG/ML 10ML VIAL IV ONE (07:32)
[2024-11-11] MEDS: TETRACAINE 1% INJ 2 ML VIAL IJ ONE (07:32)
[2024-11-11] MEDS ORDERED: MORPHINE SULF PF 5 MG/10 ML VIAL ONE (07:34)
[2024-11-11] MEDS ORDERED: fentaNYL CITRATE 100 MCG/2 ML VL ONE (08:13)
[2024-11-11] MEDS ORDERED: MIDAZOLAM HCL 2MG/2ML 2ml VIAL (1mg/ml) ONE (08:13)
[2024-11-11] MEDS: CARBOPROST TROMETHAMINE 250 MCG/1ML VIAL IM ONE (08:23)
--- NOTE | 2024-11-11 08:32 | DVHOP2 ---
Operative Report DATE OF OPERATION: 11/11/24 PREOPERATIVE DIAGNOSES: 1. Term , desires repeat section. 2. Desires bilateral tubal ligation POSTOPERATIVE DIAGNOSES: 1. Term , desires repeat section. 2. Desires bilateral tubal ligation PROCEDURES: Repeat section with bilateral tubal ligation via Filschie Clips SURGEON: Temitope Laughlin D.O./ADAL ANESTHESIOLOGIST: Dr. VAZ TYPE OF ANESTHESIA : SPINAL ESTIMATED BLOOD LOSS: 1000 mL CONSENT: The patient was informed of the risks and benefits of the procedure. These include but are not limited to , complications of anesthesia, postoperative infection, incomplete relief of symptoms, recurrence of symptoms, damage to blood vessels, nerves and tendons, deep venous thrombosis, pulmonary embolism and possible need for repeat surgery in the future. Surgery was opted. FINDINGS: Baby [F] with apgars [9] and [9]. Grossly normal appearing tubes and ovaries. TISSUE TO PATHOLOGY: Placenta. PROCEDURE IN DETAIL: The patient was taken to the operating room where she was placed under spinal anesthesia. She was then prepped and draped in the usual sterile manner in supine position with a leftward tilt. A Pfannenstiel skin incision was then made 2 cm above the symphysis pubis. This incision was enzo d to the underlying layer of fascia. The fascia was nicked in the midline and the incision was extended laterally. The superior aspect of the fascial incision was grasped and elevated. Underlying rectus muscle was dissected off bluntly. The same procedure was done to the inferior aspect of the fascial incision. The rectus muscles were then in the midline. Peritoneum was identified and entered. Peritoneal incision was extended superiorly and inferiorly with good visualization of the bladder. Bladder blade was inserted. Vesicouterine peritoneum was identified and entered. Lower uterine segment was incised in a transverse fashion. The was delivered from vertex presentation. The infant was baby [F] with Apgars of [9] and [9]. Placenta was then removed manually. Uterus was exteriorized and cleared off all clots and debris. Uterine incision was repaired using 0 Vicryl in a double-layered fashion. No bleeding was noted. Bilateral tubal ligation was then performed using Power. Placed in the ampullary region and identifying the fimbria distally. The isthmic portion of the right tube was clipped using Filschie Clip. The same procedure was done on the opposite side. No bleeding was noted. Peritoneum was closed using 0 Vicryl, fascia was closed using 0 Maxon, and skin was closed using donald. Estimated blood loss was noted to be 500 mL. The patient tolerated the procedure well. She was taken to the recovery room in stable condition. Visit Coding OBGYN Date of Service: November 11, 2024 Billing Provider: TEMITOPE LAUGHLIN DO VARNISHER Common Visit Codes: 14005-DLQPADT INP/OBS CARE (HIGH) VARNISHER Procedure Codes: 25693-BZMOH @ TIME OF , 94130-M-PEIWESZ DELIVERY ONLY TEMITOPE LAUGHLIN DO November 11, 2024 08:32
--- NOTE | 2024-11-11 08:35 | POSTOP ---
Post-Operative Note Post-Operative Note Preop Diagnosis TERM PREG DESIRES RCS WITH BTL PREVIOUS CSX1 Postop Diagnosis: SAME Operation performed RCS WITH BTL Specimen BBAY GIRL,APGARS 9-9 Anesthesia: Regional Anesthesiologist: ТАТЬЯНА Blood Loss(fluid mgmt) 1000ML Surgeon Umberto Laughlin Occupational Therapy Aide ADAL Implant FILSCHIE CLIPS Complications & Mgmt NONE Date 11/11/24 Time 08:32 Visit Coding OBGYN Date of Service: November 11, 2024 Billing Provider: UMBERTO LAUGHLIN DO LIFTER DRIVER Common Visit Codes: 44554-[id number] INP/OBS CARE (HIGH) LIFTER DRIVER Procedure Codes: 29907-MMEUB @ TIME OF , 42745-H-LXJCOTF DELIVERY ONLY UMBERTO LAUGHLIN DO November 11, 2024 08:35
[2024-11-11] MEDS ORDERED: DexAMETHasone SOD PHOS 10MG/1ML VIAL INJ IV PRN (09:45)
[2024-11-11] MEDS: NALBUPHINE HCL 10 MG/1ml INJECTION SUBCUT ONE (09:45)
[2024-11-11] MEDS ORDERED: KETOROLAC TROMETH 30 MG/ML 1ML VIAL IV PRN (09:45)
[2024-11-11] MEDS: ONDANSETRON HCL 4 MG/2 ML VIAL IV ONE (09:45)
[2024-11-11] MEDS ORDERED: diphenhdrAMINE HCL 50 MG/1 ML VL IV PRN (09:45)
[2024-11-11] MEDS ORDERED: NALOXONE HCL 0.4 MG/ML VIAL IV PRN (09:45)
[2024-11-11] MEDS ORDERED: HYDROmorphone HCL 2 MG/ML VL/or syr IV PRN ×2 (09:45)
[2024-11-11] MEDS: DIPHENOXYLATE W/ATROPINE 2.5 MG TAB PO SCH (10:00)
[2024-11-11] MEDS: ACETAMINOPHEN IV 1000 MG/100ML (10MG/ML) IV PRN (12:17)
[2024-11-11] MEDS: ceFAZolin 1GM/50ML 50 ML IV SCH (15:28)
[2024-11-11 21:06] LABS: Basophils # (auto) 0 10 ^3/uL (0-0.2); Basophils % (auto) 0.4 % (0.0-2.0); Eosinophils # (auto) 0 10 ^3/uL (0-0.8); Eosinophils % (auto) 0.2 % (0.0-7.0); Hematocrit 26.1 % (36.0-46.0); Hemoglobin 8.8 g/dL (12.2-16.2); Lymphocytes # (auto) 1.3 10 ^3/uL (0.4-5.4); Lymphocytes % (auto) 15.6 % (10.0-50.0); Mean Corpuscular Hemoglobin 27.4 pg (28.0-32.0); Mean Corpuscular Hgb Conc. 33.7 g/dL (32.0-36.0); Mean Corpuscular Volume 81.3 fL (80.0-100.0); Monocytes # (auto) 0.5 10 ^3/uL (0-1.3); Monocytes % (auto) 6.5 % (0.0-12.0); Neutrophils # (auto) 6.5 10 ^3/uL (1.6-8.6); Neutrophils % (auto) 77.3 % (37.0-80.0); Platelet Count (auto) 175 10^3/uL (140-450); Red Blood Cells 3.21 10^6/uL (4.0-5.20); Red Cell Distribution Width 14.9 % (11.8-14.3); White Blood Cell 8.4 10^3/uL (4.4-10.8)
[2024-11-12] VITALS (10 sets, daily range): BP systolic 96–127; BP diastolic 62–87; PULSE 64–78; RESP 16–18; TEMP 97.9–98.5; O2SAT 96–99
[2024-11-12] MEDS: ACETAMINOPHEN IV 1000 MG/100ML (10MG/ML) IV PRN (03:23)
[2024-11-12 06:12] LABS: Basophils # (auto) 0 10 ^3/uL (0-0.2); Basophils % (auto) 0.4 % (0.0-2.0); Eosinophils # (auto) 0 10 ^3/uL (0-0.8); Eosinophils % (auto) 0.2 % (0.0-7.0); Hematocrit 25.2 % (36.0-46.0); Hemoglobin 8.6 g/dL (12.2-16.2); Lymphocytes # (auto) 1.1 10 ^3/uL (0.4-5.4); Lymphocytes % (auto) 12.5 % (10.0-50.0); Mean Corpuscular Hemoglobin 27.5 pg (28.0-32.0); Mean Corpuscular Hgb Conc. 34.1 g/dL (32.0-36.0); Mean Corpuscular Volume 80.6 fL (80.0-100.0); Monocytes # (auto) 0.5 10 ^3/uL (0-1.3); Monocytes % (auto) 5.4 % (0.0-12.0); Neutrophils # (auto) 7.3 10 ^3/uL (1.6-8.6); Neutrophils % (auto) 81.5 % (37.0-80.0); Platelet Count (auto) 182 10^3/uL (140-450); Red Blood Cells 3.13 10^6/uL (4.0-5.20); Red Cell Distribution Width 15.1 % (11.8-14.3); White Blood Cell 8.9 10^3/uL (4.4-10.8)
[2024-11-12] MEDS ORDERED: BISACODYL 10 MG RECT SUPP PR PRN (06:30)
[2024-11-12] MEDS ORDERED: HYDROcodone-ACET 5/325MG TAB PO PRN (06:30)
--- NOTE | 2024-11-12 07:22 | DVHPN2 ---
Progress Note Date Seen: Nov 12, 2024 Subjective S: Lochia minimal. Clear liquid diet well tolerated. Ambulating and voiding well w/o feeling dizzy or lightheaded. Pain relieved with IV analgesics. Yet to passing flatus. w/o problem vital signs Vital Sign Date Time Temp Pulse Resp B/P (MAP) Pulse Ox O2 Delivery O2 Flow Rate FiO2 11/12/24 06:38 Room Air 11/12/24 04:00 71 16 115/72 (86) 96 11/12/24 03:00 98.0 98.0 Total Intake and Output 11/11/24 11/11/24 11/12/24 15:00 23:00 07:00 Intake Total 1265 ml 950 ml Output Total 1350 ml 1225 ml 1100 ml Balance -1350 ml 40 ml -150 ml medications Current Medications Medications Dose Ordered Sig/Kristi Route Start Time Stop Time Status Last Admin Dose Admin Lactated Ringer's 1,000 ml @ 125 mls/hr Q8H IV 11/11/24 04:45 11/11/24 20:06 125 MLS/HR Diphenoxylate HCl/ Atropine 5 mg Q12HR PO 11/11/24 10:00 Cefazolin Sodium 50 ml @ 100 mls/hr Q8H IV 11/11/24 15:30 11/12/24 07:59 11/12/24 07:15 100 MLS/HR Diphenhydramine HCl 25 mg Q4HP PRN IV 11/11/24 09:45 Ondansetron HCl 4 mg Q4HP PRN IV 11/11/24 09:45 Docusate Sodium 100 mg Q12HR PO 11/12/24 10:00 Dimethicone 80 mg QID PO 11/12/24 12:00 Bisacodyl 10 mg DAILYP PRN OH 11/12/24 06:30 Ibuprofen 800 mg Q8HP PRN PO 11/12/24 06:30 Acetaminophen/ Hydrocodone Bitart 1 tab Q4HPRN PRN PO 11/12/24 06:30 Acetaminophen/ Hydrocodone Bitart 2 tab Q4HPRN PRN PO 11/12/24 06:30 laboratory and microbiology Laboratory Tests 11/12/24 05:46 11/10/24 10:56 Test 11/10/24 10:56 Range/Units Serum Glucose 111 H 74-106 mg/dL Objective A&O x3 NAD. Afebrile, VSS Chest: heart and lung sounds normal. Breasts: Nipples intact w/o cracks or soreness Abdomen: normal BS, soft, non-tender, no rebound or guarding, fundus firm @ U Lower abdominal Incision site with Sylke dressing on, same clean, dry and intact. No edema, erythema or induration Extremities: no edema or tenderness Lochia - minimal Assessment/Plan 34 yo now Post operative & ppd #1 s/p Repeat Section with BTL; doing well. Blood Type: O Rh: Positive Breast feeding Rubella Immune Pain control with IV medications Bowel regimen: Increase fluid intake and fiber in diet, Laxative PRN PP BCM Plan: Had BTL Plan discussed with: Patient, Spouse Visit Coding OBGYN Date of Service: Nov 12, 2024 Billing Provider: ARAM CORBETT CNM [employer] Common Visit Codes: [id number] INP/OBS CARE(HIGH) ARAM CORBETT CNM Nov 12, 2024 07:22
[2024-11-12] MEDS: HYDROcodone-ACET 5/325MG TAB PO PRN (08:31)
[2024-11-12] MEDS: IBUPROFEN 800 MG TAB PO PRN (10:09)
[2024-11-12] MEDS: DOCUSATE SOD 100 MG CAP PO SCH (10:09)
[2024-11-12] MEDS: SIMETHICONE 80 MG CHEWABLE TABLET PO SCH (12:00)
[2024-11-13 03:00] VITALS: BP 110/72; PULSE 68; RESP 16; TEMP 98.1; O2SAT 97
[2024-11-13 07:00] VITALS: BP 127/83; PULSE 66; RESP 18; TEMP 98.3; O2SAT 97
--- NOTE | 2024-11-13 07:00 | DVHPN2 ---
Progress Note Date Seen: Nov 13, 2024 Subjective S: Lochia minimal Tolerating regular diet well. Ambulating and voiding well w/o feeling lightheaded or dizzy. Passing flatus but no BM yet. Breast feeding. Contraceptive plan: Desires and requests to be discharged home today vital signs Vital Sign Date Time Temp Pulse Resp B/P (MAP) Pulse Ox O2 Delivery O2 Flow Rate FiO2 11/13/24 03:00 98.1 68 16 110/72 (85) 97 98.1 11/12/24 18:45 Room Air Total Intake and Output 11/12/24 11/12/24 11/13/24 15:00 23:00 07:00 Output Total 950 ml 600 ml Balance -950 ml -600 ml medications Current Medications Medications Dose Ordered Sig/Kristi Route Start Time Stop Time Status Last Admin Dose Admin Diphenhydramine HCl 25 mg Q4HP PRN IV 11/11/24 09:45 Ondansetron HCl 4 mg Q4HP PRN IV 11/11/24 09:45 Docusate Sodium 100 mg Q12HR PO 11/12/24 10:00 11/12/24 21:30 100 MG Dimethicone 80 mg QID PO 11/12/24 12:00 11/13/24 05:32 80 MG Bisacodyl 10 mg DAILYP PRN HI 11/12/24 06:30 Ibuprofen 800 mg Q8HP PRN PO 11/12/24 06:30 11/13/24 04:03 800 MG Acetaminophen/ Hydrocodone Bitart 1 tab Q4HPRN PRN PO 11/12/24 06:30 Acetaminophen/ Hydrocodone Bitart 2 tab Q4HPRN PRN PO 11/12/24 06:30 11/13/24 01:54 2 TAB laboratory and microbiology Laboratory Tests 11/12/24 05:46 11/10/24 10:56 Test 11/10/24 10:56 Range/Units Serum Glucose 111 H 74-106 mg/dL Objective O: A&O x3 NAD. Afebrile, VSS Chest: heart and lung sounds normal. Breasts: Nipples intact w/o cracks or soreness Abdomen: normal BS, soft, non-tender, no rebound or guarding, fundus firm @ U- 1, Lower abdominal Incision site with Sylke on, same clean, dry and intact. No edema, erythema or induration Extremities: no edema or tenderness Lochia - minimal Assessment/Plan 34 yo now Post operative & ppd # s/p Repeat with BTL Section doing well. Anemia h/o labor Blood Type: O Rh: Positive Breast feeding Rubella Immune Pain control with oral medications Bowel regimen: Increase fluid intake and fiber in diet, Laxative PRN PP BCM Plan: Had BTL Discharge plan: May discharge home later today if condition remains stable Plan discussed with: Patient Visit Coding OBGYN Date of Service: Nov 13, 2024 Billing Provider: ARAM CORBETT CNM FILL MANAGER Common Visit Codes: [id number] INP/OBS CARE(HIGH) ARAM CORBETT CNM Nov 13, 2024 07:00
--- NOTE | 2024-11-13 07:17 | DVHDS2 ---
Discharge Summary Date of Admission November 11, 2024 at 03:58 Date of Discharge: Nov 13, 2024 Admitting Diagnosis IUP at 38w 5d Desires Repeat Section and Bilateral Tubal ligation h/o Section h/o labor; was on Procardia Labs/Diagnostic Data: Laboratory Results Test 11/12/24 05:46 11/10/24 10:56 11/10/24 10:31 White Blood Count 8.9 10^3/uL (4.4-10.8) Red Blood Count 3.13 10^6/uL (4.0-5.20) Hemoglobin 8.6 g/dL (12.2-16.2) Hematocrit 25.2 % (36.0-46.0) Mean Corpuscular Volume 80.6 fL (80.0-100.0) Mean Corpuscular Hemoglobin 27.5 pg (28.0-32.0) Mean Corpuscular Hemoglobin Concent 34.1 g/dL (32.0-36.0) Red Cell Distribution Width 15.1 % (11.8-14.3) Platelet Count 182 10^3/uL (140-450) Mean Platelet Volume 9.1 fL (6.9-10.8) Neutrophils (%) (Auto) 81.5 % (37.0-80.0) Lymphocytes (%) (Auto) 12.5 % (10.0-50.0) Monocytes (%) (Auto) 5.4 % (0.0-12.0) Eosinophils (%) (Auto) 0.2 % (0.0-7.0) Basophils (%) (Auto) 0.4 % (0.0-2.0) Neutrophils # (Auto) 7.3 10 ^3/uL (1.6-8.6) Lymphocytes # (Auto) 1.1 10 ^3/uL (0.4-5.4) Monocytes # (Auto) 0.5 10 ^3/uL (0-1.3) Eosinophils # (Auto) 0 10 ^3/uL (0-0.8) Basophils # (Auto) 0 10 ^3/uL (0-0.2) Nucleated Red Blood Cells 0.0 % Prothrombin Time 9.8 sec (9.3-11.8) Prothrombin Time INR 0.92 (0.9-1.15) Activated Partial Thromboplast Time 26.5 SEC (24.5-34.5) Sodium Level 135 mmol/L (136-145) Potassium Level 3.6 mmol/L (3.5-5.1) Chloride Level 103 mmol/L (98-107) Carbon Dioxide Level 21 mmol/L (20-31) Anion Gap 11 (5-15) Blood Urea Nitrogen 8 mg/dL (9-23) Creatinine 0.61 mg/dL (0.550-1.02) Glomerular Filtration Rate Calc 120 mL/min (>90) BUN/Creatinine Ratio 13.1 (10.0-20.0) Serum Glucose 111 mg/dL (74-106) Calcium Level 8.8 mg/dL (8.7-10.4) Total Bilirubin 0.5 mg/dL (0.2-1.0) Aspartate Amino Transferase (AST) 14 U/L (13-40) Alanine Aminotransferase (ALT) 9 U/L (7-40) Alkaline Phosphatase 179 U/L (46-116) Total Protein 7.0 g/dL (5.7-8.2) Albumin 4.1 g/dL (3.2-4.8) Treponema pallidum Antibody Non-reactive (Negative) Hepatitis C Antibody Negative (Negative) Urine Color Yellow (Yellow) Urine Clarity Turbid (Clear) Urine pH 6.5 (5.0-9.0) Urine Specific [place] 1.018 (1.001-1.035) Urine Protein Trace (Negative) Urine Ketones Negative (Negative) Urine Blood Negative /uL (Negative) Urine Nitrite Negative (Negative) Urine Bilirubin Negative (Negative) Urine Urobilinogen Normal mg/dL (Negative) Urine Leukocyte Esterase 3+ /uL (Negative) Urine RBC 4 /hpf (0 - 4) Urine Microscopic WBC 13 /HPF (0-5) Urine Squamous Epithelial Cells Mod /hpf (<5) Urine Bacteria Few /hpf (None Seen) Urine Mucus Few (None Seen) Urine Glucose Normal mg/dL (Normal) Urine Opiates Screen Neg (NEGATIVE) Urine Fentanyl Screen Neg (NEGATIVE) Urine Barbiturates Screen Neg (NEGATIVE) Urine Phencyclidine Screen Neg (NEGATIVE) Urine Amphetamines Screen Neg (NEGATIVE) Urine Benzodiazepines Screen Neg (NEGATIVE) Urine Cocaine Screen Neg (NEGATIVE) Urine Cannabinoids Screen Neg (NEGATIVE) Other Laboratory Tests 11/12/24 05:46 11/10/24 10:56 Brief Hx & Hospital Course: Admitted on 11/11/24 at 38w 5d EGA for repeat Section with BTL. (See Operation Note for details) Normal post-operative & course; meeting milestones w/o any problem or complications. Operations or Procedures Repeat Section with BTL Condition at Discharge: Good Final Diagnosis/Problems List SAME Secondary Diagnosis: Anemia d/t blood loss Discharge Disposition: Home Discharge Instruct/Medications Diet: Regular Diet comment: Routine regular diet rich in fiber, protein, iron and vitamin C with adequate fluid intake. Activity: No Restrictions, As Tolerated Activity comment: Unrestricted. Advance as tolerated. Balance activities with rest periods. No heavy lifting, pushing or straining. Pelvic rest x 6weeks Follow Up/Referral: Post operative and self care instructions given. self care instructions given. emergency signs and symptoms including but not limited to pre-eclampsia precautions and signs of infection, PPH & of PPD reviewed with patient. Follow up with OB Provider in 1 week Medications: Ibuprofen 600mg every 6 hours as needed for pain. Continue Vitamin and iron Discharge Statement: Post operative and self care instructions given. self care instructions given. emergency signs and symptoms including but not limited to pre-eclampsia precautions and signs of infection, PPH & of PPD reviewed with patient. Follow up with OB Provider in 1 week "Patient was advised to return to the ER or call 911 if any headaches, dizziness, shortness of breath, chest pain, abdominal pain, bleeding, fevers, or worsening of medical condition. Patient was counseled about treatment plan, medications, possible side effects, patientverbalized understanding. All questions were answered to the best of my ability. This discharge took greater then 30 minutes in planning, reviewing documentation, counseling the patient, and discussing with other team members." Discharge Care Plan Problem Pain Instructions Take Rx medications, Notify MD of any issues, Keep list of meds w/ you, Do not drink ETOH/smoke, Call 911 in an emergency, F/U w/ PCP, Provide comfort measures, Educate on timing of meds ASSESSMENT ASSESSMENT Hospital Course Admitted on 11/11/24 at 38w 5d EGA for repeat Section with BTL. (See Operation Note for details) Anemia d/t blood loss. Patient remains asymptomatic; performing ADLs w/o feeling any symptom. Hence post-operative & course normal thus far; meeting post-operative and milestones w/o any problem or complications. Assessment SAME Anemia s/p Repeat Section with BTL Visit Coding OBGYN Date of Service: Nov 13, 2024 Billing Provider: ARAM CORBETT CNM BIOMECHANICAL ENGINEER Common Visit Codes: 73901-AUO/OBS DISCH DAY <30MIN ARAM CORBETT CNM Nov 13, 2024 07:17
[2024-11-13] MEDS ORDERED: FER325T PO (07:26)
[2024-11-13 08:05] LABS: Basophils # (auto) 0 10 ^3/uL (0-0.2); Monocytes # (auto) 0.5 10 ^3/uL (0-1.3); Neutrophils # (auto) 6.1 10 ^3/uL (1.6-8.6)
[2024-11-13 08:07] LABS: Basophils % (auto) 0.2 % (0.0-2.0); Eosinophils # (auto) 0 10 ^3/uL (0-0.8); Eosinophils % (auto) 0.5 % (0.0-7.0); Hematocrit 24.3 % (36.0-46.0); Hemoglobin 8.2 g/dL (12.2-16.2); Lymphocytes # (auto) 1.5 10 ^3/uL (0.4-5.4); Lymphocytes % (auto) 18.7 % (10.0-50.0); Mean Corpuscular Hemoglobin 27.3 pg (28.0-32.0); Mean Corpuscular Hgb Conc. 33.7 g/dL (32.0-36.0); Neutrophils % (auto) 74.6 % (37.0-80.0); Platelet Count (auto) 200 10^3/uL (140-450); Red Cell Distribution Width 14.9 % (11.8-14.3); White Blood Cell 8.2 10^3/uL (4.4-10.8)
[2024-11-13 10:40] VITALS: BP 101/67; PULSE 73; RESP 17; TEMP 98.3; O2SAT 97
== END 2024-11-13 12:27 | disposition home or self-care (01) | DRG 539 ==
LOC: LDRP 11-11 03:58 → PREOBSVTOIN 11-11 04:08 → LDRP 11-11 08:00
PROVIDERS: ADMIT Obstetrics & Gynecology; ATTEND Obstetrics & Gynecology
PROC: 0UL70CZ Occlusion of Bilateral Fallopian Tubes with Extraluminal Device, Open Approach (ICD-10-PCS; 2024-11-11)
PROC: 10D00Z1 Extraction of Products of Conception, Low, Open Approach (ICD-10-PCS; principal; 2024-11-11 07:30)
DX: O34.211 Maternal care for low transverse scar from previous cesarean delivery (principal); D62 Acute posthemorrhagic anemia; O90.81 Anemia of the puerperium; Z30.2 Encounter for sterilization; Z37.0 Single live birth; Z3A.38 38 weeks gestation of pregnancy
CPT/HCPCS: 36415; 59025; 80053; 80307; 81001; 85025; 85610; 85730; 86780; 86803; 86850; 86900; 86901; 94760; 94762; 96360; 96361; G0378; J0131; J0330; J2250